=== PATIENT | female | born 1970 | race Caucasian/White ===

== ENCOUNTER 2019-07-19 20:00 | Outpatient (CLI) | payer MEDICARE, MEDICAID, SELFPAY | END 2019-07-19 20:01 | disposition home or self-care (01) | LOC: SLEEP 07-20 10:35 | PROVIDERS: Family Provider Nurse Practitioner Family; PCP Family Medicine; Visit Provider Family Medicine | DX: G47.33 Obstructive sleep apnea (adult) (pediatric) (principal) | CPT/HCPCS: 95810; 95811 ==

== ENCOUNTER → 2019-09-15 13:08 | Outpatient (BNVA) | payer MEDICARE, MEDICAID, SELFPAY | PROVIDERS: Family Provider Nurse Practitioner Family; PCP Nurse Practitioner Family; Visit Provider Family Medicine | DX: E55.9 Vitamin D deficiency, unspecified (principal) | CPT/HCPCS: 80053; 82306 ==

== ENCOUNTER → 2019-12-23 11:19 | Outpatient (BNVA) | payer MEDICARE, MEDICAID, SELFPAY | PROVIDERS: Family Provider Nurse Practitioner Family; PCP Nurse Practitioner Family; Visit Provider Nurse Practitioner Family | DX: R76.11 Nonspecific reaction to tuberculin skin test without active tuberculosis (principal); E55.9 Vitamin D deficiency, unspecified; E78.5 Hyperlipidemia, unspecified; G47.33 Obstructive sleep apnea (adult) (pediatric); F31.9 Bipolar disorder, unspecified; M79.5 Residual foreign body in soft tissue | CPT/HCPCS: 71046; 80053; 80061; 82306; 85025 ==

== ENCOUNTER 2019-12-28 11:43 | Outpatient (CLI) | payer MEDICARE, MEDICAID, SELFPAY ==
--- NOTE | 2019-12-28 11:51 | MM_ITS ---
WS: [id number] SCREENING DIGITAL MAMMOGRAM WITH CAD HISTORY: SCREENING COMPARISON: 09/25/2018, 10/27/2017 Bilateral CC and MLO views submitted. Computer aided detection analyzed. Breast composition: The breasts are heterogeneously dense, which may obscure small masses. No suspici ous masses, microcalcifications or architectural distortion. MM/[place] [id number] IMPRESSION: BI-RADS: 1-Negative FOLLOW UP: 1 Year Follow-up
== END 2019-12-28 11:44 | disposition home or self-care (01) ==
PROVIDERS: PCP Nurse Practitioner Family; Visit Provider Family Medicine
DX: Z12.31 Encounter for screening mammogram for malignant neoplasm of breast (principal)
CPT/HCPCS: 77067

== ENCOUNTER 2020-02-02 07:24 | Day surgery (SDC) | payer MEDICARE, MEDICAID, SELFPAY ==
[2020-01-27 13:08] VITALS: BMI 39.1
[2020-02-02 07:56] LABS: OR HCG Qualitative Urine Negative (Negative)
[2020-02-02 08:02] VITALS: BP 126/81; PULSE 70; RESP 18; TEMP 36.8; O2SAT 96
[2020-02-02] MEDS: sodium chloride 0.9% 1,000 ML 30 ML IV (08:06)
--- NOTE | 2020-02-02 08:06 | ANES.PREANE2 ---
Pre-Anesthetic Assessment Pre-Anesthetic Assessment: Height/Weight: Height 1.6 m Weight 100.244 kg Temp Pulse Resp BP Pulse Ox 98.3 F 70 18 126/81 96 02/02/20 08:02 02/02/20 08:02 02/02/20 08:02 02/02/20 08:02 02/02/20 08:02 Preop Diagnosis: Screening colonoscopy Proposed Procedure: Operation Date: 02/02/20 08:15 Proposed Procedures p Colonoscopy/98186 Z12.11(Not Applicable) - Jaswinder Camara MD Last intake: Intake Last Liquid Date 02/01/20 Last Liquid Time 22:00 Last Solid Date 01/31/20 Social: Social History: No alcohol and No tobacco Exam: Pre-Anes Outpt Exam: alert, oriented x 3, clear to auscultation bilaterally and regular rate & rhythm Airway: Submandibular: WNL Cervical ROM: WNL MP: 2 Dentition: False (upper) and Other (teeth poor ) History/ROS: No significant history except as noted Pulmonary: Pulmonary: OLIVAS and Sleep apnea CV/HEM: CV/HEM: None reported : : None reported Hepatic: Hepatic: None reported GI: GI: GERD (controlled) Metabolic: Metabolic: Hyperlipidemia and Morbid obesity Musc/skel: Musc/skel: None reported Neuropsych: Neuropsych: Anxiety, Bipolar and Depression Anesthetic Plan: ASA status: 3 Anesthesia: Anesthesia Evaluation and MAC Risk of > 500 ml blood loss (7ml/kg in children): No Meds/Allergies Current Medications: Current Medications Generic Name Dose Route Start Last Admin Trade Name Freq PRN Reason Stop Dose Admin Sodium Chloride 1,000 mls @ 30 ml s/hr 02/02/20 07:45 02/02/20 08:06 Sodium Chloride 0.9% IV 30 mls/hr .Q24H GRACE Administration PFSH Anesthesia PFSH: Medical History Bipolar 1 disorder Dyslipidemia Intellectual delay ROB on CPAP Family History Other Cancer Diabetes Hyperlipidemia Hypertension Thyroid disease Denies family history of Anesthesia complication Bleeding disorder Social History Smoking and tobacco status: never smoked Second hand smoke exposure: No Alcohol intake: never Caregiver/support person: Yes Household members: caregiver Marital status: Single Current occupational status: disabled History of recent travel: No Current gender identity: Female Data Anesthesia Other Labs: Laboratory Results - last 48 hr 02/02/20 07:46 Urine HCG, Qual Negative Cardiac Studies: No Data to Display
--- NOTE | 2020-02-02 08:41 | W.PM.OPSUD ---
Surgery/Procedure H&P Update DATE OF PROCEDURE: February 02, 2020 DATE H&P PERFORMED: 01/19/20 H&P UPDATE INFORMATION: I have reviewed H&P completed within last 30 days, I have examined patient prior to procedure and No changes to prior documentation PREOP DIAGNOSIS: Screening colonoscopy PRIMARY INDICATION FOR PROCEDURE: The same PLANNED PROCEDURE: Operation Date: 02/02/20 08:15 Proposed Procedures p Colonoscopy/03101 Z12.11(Not Applicable) - Jaswinder Camara MD
[2020-02-02 08:59] VITALS: BP 125/82; PULSE 85; RESP 16; TEMP 36.1; O2SAT 97
[2020-02-02 09:13] VITALS: BP 126/74; PULSE 77; RESP 18; O2SAT 100
== END 2020-02-02 09:24 | disposition home or self-care (01) ==
PROVIDERS: PCP Nurse Practitioner Family; Visit Provider Surgery
PROC: 0DJD8ZZ Inspection of Lower Intestinal Tract, Via Natural or Artificial Opening Endoscopic (ICD-10-PCS; CPT 45378; principal; 2020-02-02 08:15)
DX: Z12.11 Encounter for screening for malignant neoplasm of colon (principal); D12.3 Benign neoplasm of transverse colon; D12.8 Benign neoplasm of rectum; K21.9 Gastro-esophageal reflux disease without esophagitis; E78.5 Hyperlipidemia, unspecified; E66.01 Morbid (severe) obesity due to excess calories; Z68.39 Body mass index [BMI] 39.0-39.9, adult; G47.33 Obstructive sleep apnea (adult) (pediatric)
CPT/HCPCS: 12345; 45380; 84703; 88305; J2704; J7030

== ENCOUNTER → 2020-04-04 14:44 | Outpatient (BNVA) | payer MEDICARE, MEDICAID, SELFPAY | PROVIDERS: PCP Nurse Practitioner Family; Referring Provider Family Medicine; Visit Provider Podiatrist Foot & Ankle Surgery | DX: M79.671 Pain in right foot (principal); M79.672 Pain in left foot; M25.571 Pain in right ankle and joints of right foot; M25.572 Pain in left ankle and joints of left foot; Z47.89 Encounter for other orthopedic aftercare; M76.829 Posterior tibial tendinitis, unspecified leg; M72.2 Plantar fascial fibromatosis | CPT/HCPCS: 73610; 73630; 97760; L1902 ==

== ENCOUNTER 2020-04-04 15:32 | Outpatient (CLI) | payer MEDICARE, MEDICAID, SELFPAY | END 2020-04-04 15:33 | disposition home or self-care (01) | LOC: SPT 15:33 | PROVIDERS: PCP Nurse Practitioner Family; Visit Provider Podiatrist Foot & Ankle Surgery | DX: Z47.89 Encounter for other orthopedic aftercare (principal); M76.829 Posterior tibial tendinitis, unspecified leg; M72.2 Plantar fascial fibromatosis | CPT/HCPCS: 97760; L1902 ==

== ENCOUNTER → 2020-05-23 10:48 | Outpatient (BNVA) | payer MEDICARE, MEDICAID, SELFPAY | PROVIDERS: PCP Nurse Practitioner Family; Visit Provider Family Medicine | DX: Z20.828 Contact with and (suspected) exposure to other viral communicable diseases (principal); J01.00 Acute maxillary sinusitis, unspecified | CPT/HCPCS: 87635 ==

== ENCOUNTER → 2020-06-12 10:17 | Outpatient (BNVA) | payer MEDICARE, MEDICAID, SELFPAY | PROVIDERS: PCP Nurse Practitioner Family; Visit Provider Family Medicine | DX: E78.5 Hyperlipidemia, unspecified (principal); E55.9 Vitamin D deficiency, unspecified | CPT/HCPCS: 80053; 80061; 82306; 85025 ==

== ENCOUNTER → 2020-12-18 10:04 | Outpatient (BNVA) | payer MEDICARE, MEDICAID, SELFPAY | PROVIDERS: PCP Nurse Practitioner Family; Visit Provider Family Medicine | DX: Z00.00 Encounter for general adult medical examination without abnormal findings (principal); Z11.1 Encounter for screening for respiratory tuberculosis; E78.5 Hyperlipidemia, unspecified; Z12.31 Encounter for screening mammogram for malignant neoplasm of breast | CPT/HCPCS: 71046; 80053; 80061; 81003; 84443; 85025 ==

== ENCOUNTER → 2021-02-08 13:34 | Outpatient (BNVA) | payer MEDICARE, MEDICAID, SELFPAY | PROVIDERS: PCP Nurse Practitioner Family; Visit Provider Family Medicine | DX: E55.9 Vitamin D deficiency, unspecified (principal) | CPT/HCPCS: 82306 ==

== ENCOUNTER 2021-03-22 14:31 | Outpatient (CLI) | payer MEDICARE, MEDICAID, SELFPAY ==
--- NOTE | 2021-03-22 14:47 | MM_ITS ---
WS: [id number] SCREENING DIGITAL MAMMOGRAM WITH CAD HISTORY: SCREENING COMPARISON: 12/28/2019, 09/25/2018 and 10/27/2017 Bilateral CC and MLO views submitted. Computer aided detection analyzed. Breast composition: The breasts are heterogeneously dense, which may obscure small masses. Asymmetry seen on the LEFT CC projection posteriorly measures 13 mm. This is probably above the nipple line on the lateral projection. This asymmetry has become more prominent as compared to prior studies. MM/[place] [id number] IMPRESSION: BI-RADS: 0-Incomplete: Need additional imaging evaluation FOLLOW UP: Need Additional Imaging LEFT breast: Spot compression views (CC and MLO). True ML. Ultrasound to follow if abnormality persists.
== END 2021-03-22 14:32 | disposition home or self-care (01) ==
LOC: RADSHAW 14:42
PROVIDERS: PCP Nurse Practitioner Family; Visit Provider Family Medicine
DX: Z12.31 Encounter for screening mammogram for malignant neoplasm of breast (principal)
CPT/HCPCS: 77067

== ENCOUNTER → 2021-04-02 16:15 | Outpatient (BNVA) | payer MEDICARE, MEDICAID, SELFPAY | PROVIDERS: PCP Nurse Practitioner Family; Visit Provider Nurse Practitioner Family | DX: Z20.822 Contact with and (suspected) exposure to COVID-19 (principal); J01.40 Acute pansinusitis, unspecified | CPT/HCPCS: 87635 ==

== ENCOUNTER 2021-05-15 14:20 | Outpatient (CLI) | payer MEDICARE, MEDICAID, SELFPAY ==
--- NOTE | 2021-05-15 14:28 | US_ITS ---
WS: [id number] ADDITIONAL VIEWS LEFT MAMMOGRAM LEFT BREAST ULTRASOUND HISTORY: LEFT BREAST ASYMMETRY COMPARISON: None available. LEFT MAMMOGRAM: Spot compression views and true ML. The asymmetry seen central to the nipple essentially resolved. There is very dense fibroglandular tis rosa central and to the lateral breast. Ultrasound will be performed to better evaluate this dense fib roglandular tissue. LEFT BREAST ULTRASOUND 2-D and color Doppler imaging submitted. Ultrasound is directed to the superior LEFT breast. There is dense fibroglandular tissue but no mass identified. US/US breast LT limited* [id number] IMPRESSION: BI-RADS: 2-Benign FOLLOW UP: 1 Year Follow-up
== END 2021-05-15 14:21 | disposition home or self-care (01) ==
LOC: RADSHAW 14:25
PROVIDERS: PCP Nurse Practitioner Family; Visit Provider Family Medicine
DX: N64.89 Other specified disorders of breast (principal)
CPT/HCPCS: 76642; 77065

== ENCOUNTER → 2021-07-04 08:50 | Outpatient (BNVA) | payer MEDICARE, MEDICAID, SELFPAY | PROVIDERS: PCP Nurse Practitioner Family; Visit Provider Nurse Practitioner Family | DX: Z00.00 Encounter for general adult medical examination without abnormal findings (principal); E78.5 Hyperlipidemia, unspecified; E55.9 Vitamin D deficiency, unspecified | CPT/HCPCS: 80053; 80061; 82306 ==

== ENCOUNTER → 2021-12-07 09:47 | Outpatient (BNVA) | payer MEDICARE, MEDICAID, SELFPAY | PROVIDERS: PCP Nurse Practitioner Family; Visit Provider Nurse Practitioner Family | DX: E78.5 Hyperlipidemia, unspecified (principal); E55.9 Vitamin D deficiency, unspecified | CPT/HCPCS: 80053; 80061; 84443; 85025 ==

== ENCOUNTER → 2021-12-24 11:24 | Outpatient (BNVA) | payer MEDICARE, MEDICAID, SELFPAY | PROVIDERS: PCP Nurse Practitioner Family; Visit Provider Nurse Practitioner Family | DX: Z00.00 Encounter for general adult medical examination without abnormal findings (principal); Z11.1 Encounter for screening for respiratory tuberculosis | CPT/HCPCS: 71046 ==

== ENCOUNTER → 2022-04-16 14:43 | Outpatient (BNVA) | payer MEDICARE, MEDICAID, SELFPAY | PROVIDERS: PCP Nurse Practitioner Family; Visit Provider Nurse Practitioner Family | DX: E55.9 Vitamin D deficiency, unspecified (principal) | CPT/HCPCS: 82306 ==

== ENCOUNTER 2022-05-08 10:10 | Outpatient (CLI) | payer MEDICARE, MEDICAID, SELFPAY ==
--- NOTE | 2022-05-08 10:18 | MM_ITS ---
WS: [id number] BILATERAL SCREENING DIGITAL MAMMOGRAM WITH CAD HISTORY: SCREENING COMPARISON: None available. Bilateral CC and MLO views submitted. Computer aided detection analyzed. Breast composition: The breasts are heterogeneously dense, which may obscure small masses. No suspici ous masses, microcalcifications or architectural distortion. MM/[place] [id number] IMPRESSION: BI-RADS: 1-Negative FOLLOW UP: 1 Year Follow-up
== END 2022-05-08 10:11 | disposition home or self-care (01) ==
LOC: RAD 10:10
PROVIDERS: PCP Nurse Practitioner Family; Visit Provider Nurse Practitioner Family
DX: Z12.31 Encounter for screening mammogram for malignant neoplasm of breast (principal)
CPT/HCPCS: 77063; 77067

== ENCOUNTER → 2022-10-14 13:48 | Outpatient (BNVA) | payer MEDICARE, MEDICAID, SELFPAY | PROVIDERS: PCP Nurse Practitioner Family; Visit Provider Nurse Practitioner Family | DX: E78.5 Hyperlipidemia, unspecified (principal); E55.9 Vitamin D deficiency, unspecified | CPT/HCPCS: 80053; 80061; 82306; 85025 ==

== ENCOUNTER → 2022-10-28 10:03 | Outpatient (BNVA) | payer MEDICARE, MEDICAID, SELFPAY | PROVIDERS: PCP Nurse Practitioner Family; Visit Provider Podiatrist Foot & Ankle Surgery | DX: M21.611 Bunion of right foot (principal); M20.41 Other hammer toe(s) (acquired), right foot; M20.42 Other hammer toe(s) (acquired), left foot; M21.41 Flat foot [pes planus] (acquired), right foot; M21.42 Flat foot [pes planus] (acquired), left foot | CPT/HCPCS: 73630; 99203 ==

== ENCOUNTER → 2022-12-23 09:37 | Outpatient (BNVA) | payer MEDICARE, MEDICAID, SELFPAY | PROVIDERS: PCP Nurse Practitioner Family; Visit Provider Nurse Practitioner Family | DX: E78.5 Hyperlipidemia, unspecified (principal) | CPT/HCPCS: 80053; 80061; 84443; 85025 ==

== ENCOUNTER → 2023-01-06 16:00 | Outpatient (BNVA) | payer MEDICARE, MEDICAID, SELFPAY | PROVIDERS: PCP Nurse Practitioner Family; Visit Provider Obstetrics & Gynecology | DX: Z12.4 Encounter for screening for malignant neoplasm of cervix (principal) | CPT/HCPCS: 87624 ==

== ENCOUNTER → 2023-01-27 09:33 | Outpatient (BNVA) | payer MEDICARE, MEDICAID, SELFPAY | PROVIDERS: PCP Nurse Practitioner Family; Visit Provider Podiatrist Foot & Ankle Surgery | DX: E78.5 Hyperlipidemia, unspecified (principal); M21.611 Bunion of right foot; M20.41 Other hammer toe(s) (acquired), right foot; M21.41 Flat foot [pes planus] (acquired), right foot; M21.42 Flat foot [pes planus] (acquired), left foot | CPT/HCPCS: 99213 ==

== ENCOUNTER → 2023-01-29 10:58 | Outpatient (BNVA) | payer MEDICARE, MEDICAID, SELFPAY | PROVIDERS: PCP Nurse Practitioner Family; Visit Provider Obstetrics & Gynecology | DX: N85.2 Hypertrophy of uterus (principal); N83.202 Unspecified ovarian cyst, left side; N83.201 Unspecified ovarian cyst, right side | CPT/HCPCS: 76830 ==

== ENCOUNTER → 2023-02-04 12:00 | Outpatient (BNVA) | payer MEDICARE, MEDICAID, SELFPAY | PROVIDERS: PCP Nurse Practitioner Family; Visit Provider Nurse Practitioner Family | DX: Z11.1 Encounter for screening for respiratory tuberculosis (principal) | CPT/HCPCS: 71046 ==

== ENCOUNTER → 2023-02-11 17:00 | Outpatient (BNVA) | payer MEDICARE, MEDICAID, SELFPAY | PROVIDERS: PCP Nurse Practitioner Family; Visit Provider Obstetrics & Gynecology | DX: R87.619 Unspecified abnormal cytological findings in specimens from cervix uteri (principal) | CPT/HCPCS: 87491; 87591; 88305 ==

== ENCOUNTER 2023-05-09 09:56 | Outpatient (CLI) | payer MEDICARE, MEDICAID, SELFPAY ==
--- NOTE | 2023-05-09 10:00 | MM_ITS ---
WS: [id number] BILATERAL 3D TOMOSYNTHESIS DIGITAL SCREENING MAMMOGRAPHY WITH CAD CLINICAL INFORMATION: SCREENING HISTORY: Screening mammogram. No current complaints. COMPARISON: 2021 TECHNIQUE: Bilateral CC and MLO views. FINDINGS: The breasts are composed of heterogeneous fibroglandular density tissue, which can limit the detectio n of small underlying mass lesions. No suspicious mass, asymmetry, calcifications, or architectural d istortion. No evidence of malignancy. IMPRESSION: MM/[place] [id number] BI-RADS: 1-Negative FOLLOW UP: 1 Year Follow-up Recommend return to annual screening mammography.
== END 2023-05-09 09:57 | disposition home or self-care (01) ==
LOC: MOBLMAM 10:09
PROVIDERS: PCP Nurse Practitioner Family; Visit Provider Nurse Practitioner Family
DX: Z12.31 Encounter for screening mammogram for malignant neoplasm of breast (principal)
CPT/HCPCS: 77063; 77067

== ENCOUNTER → 2023-06-16 15:04 | Outpatient (BNVA) | payer MEDICARE, MEDICAID, SELFPAY | PROVIDERS: PCP Nurse Practitioner Family; Visit Provider Nurse Practitioner Family | DX: E78.5 Hyperlipidemia, unspecified (principal) | CPT/HCPCS: 80053; 80061; 84443; 85025 ==

== ENCOUNTER → 2023-11-25 09:41 | Outpatient (BNVA) | payer MEDICARE, MEDICAID, SELFPAY | PROVIDERS: PCP Nurse Practitioner Family; Visit Provider Nurse Practitioner Family | DX: E78.5 Hyperlipidemia, unspecified (principal); G47.9 Sleep disorder, unspecified; F32.A Depression, unspecified; K21.9 Gastro-esophageal reflux disease without esophagitis; F31.9 Bipolar disorder, unspecified; G47.33 Obstructive sleep apnea (adult) (pediatric); Z76.0 Encounter for issue of repeat prescription; Z79.899 Other long term (current) drug therapy | CPT/HCPCS: 80053; 80061; 84443; 85025 ==

== ENCOUNTER → 2024-02-09 09:48 | Outpatient (BNVA) | payer MEDICARE, MEDICAID, SELFPAY | PROVIDERS: PCP Nurse Practitioner Family; Visit Provider Nurse Practitioner Family | DX: Z11.1 Encounter for screening for respiratory tuberculosis (principal) | CPT/HCPCS: 71046 ==

== ENCOUNTER → 2024-03-02 15:35 | Outpatient (BNVA) | payer MEDICARE, MEDICAID, SELFPAY | PROVIDERS: PCP Nurse Practitioner Family; Visit Provider Obstetrics & Gynecology | DX: Z01.419 Encounter for gynecological examination (general) (routine) without abnormal findings (principal) | CPT/HCPCS: 87624 ==

== ENCOUNTER → 2024-05-26 10:53 | Outpatient (BNVA) | payer MEDICARE, MEDICAID, SELFPAY | PROVIDERS: PCP Nurse Practitioner Family; Visit Provider Nurse Practitioner Family | DX: E78.5 Hyperlipidemia, unspecified (principal); G47.9 Sleep disorder, unspecified | CPT/HCPCS: 80053; 80061; 84443; 85025 ==

== ENCOUNTER 2024-06-15 12:38 | Outpatient (CLI) | payer MEDICARE, MEDICAID, SELFPAY ==
--- NOTE | 2024-06-15 12:40 | MM_ITS ---
WS: [id number] BILATERAL 3D TOMOSYNTHESIS DIGITAL SCREENING MAMMOGRAPHY WITH CAD CLINICAL INFORMATION: SCREENING HISTORY: Screening mammogram. No current complaints. COMPARISON: 2022 TECHNIQUE: Bilateral CC and MLO views. FINDINGS: The breasts are composed of heterogeneous fibroglandular density tissue, which can limit the detectio n of small underlying mass lesions. Dense nodularity with slight spiculation upper outer LEFT breast measuring 9 mm with associated architectural distortion progressed since the prior studies. Recommen d further evaluation with LEFT breast diagnostic mammography and ultrasound. Unremarkable RIGHT breast. MM/MM [facility] tomosynthesis [id number] IMPRESSION: DENSITY: The breasts are heterogeneously dense, which may obscure small masses. BI-RADS: 0 - Incomplete: Need additional imaging evaluation FOLLOW UP: Need Additional Imaging Recommend LEFT breast diagnostic mammography and ultrasound.
== END 2024-06-15 12:39 | disposition home or self-care (01) ==
LOC: MOBLMAM 12:41
PROVIDERS: PCP Nurse Practitioner Family; Visit Provider Nurse Practitioner Family
DX: Z12.31 Encounter for screening mammogram for malignant neoplasm of breast (principal); R92.333 Mammographic heterogeneous density, bilateral breasts; N63.21 Unspecified lump in the left breast, upper outer quadrant
CPT/HCPCS: 77063; 77067

== ENCOUNTER 2024-07-05 14:56 | Outpatient (CLI) | payer MEDICARE, MEDICAID, SELFPAY ==
--- NOTE | 2024-07-05 | US_ITS ---
[address] [address] Mammography Report Signed Patient: Mercedes Jhaveri Unit #: [id number] : 1970 Age/Sex: 53 / F ADM Date: 07/05/24 Loc: RAD Room/Bed: Attending Dr: Rosalinda Martínez SHIFT LAB TECHNICIAN-C Ordering Provider/Ordering MD: Rosalinda Martínez Date of Service: 07/05/24 Procedure(s): MM diag LT tomosynthesis [id number]; US breast LT limited* [id number] Accession Number(s): [id number]; [id number] Report Number: [id number] NOTE: Report was unsigned for reason: Report did not cross. Original Signature date and time was: 07/05/24 @ 16:59 LEFT 3D TOMOSYNTHESIS DIGITAL MAMMOGRAPHY WITH CAD CLINICAL INFORMATION: N64.9 - Disorder of breast, unspecified HISTORY: Additional views COMPARISON: 06/15/2024 TECHNIQUE: 3 views of the left breast were obtained. FINDINGS: The left breast is composed of heterogeneous fibroglandular density tissue, which can limit the detection of small underlying mass lesions. Again seen is the dense nodular breast tissue upper outer LEFT breast. This is persistent on the spot compression views. Ultrasound of this area is pending. ULTRASOUND BREAST LEFT TECHNIQUE: Ultrasound left breast focused area of concern. CLINICAL INFORMATION: N64.9 - Disorder of breast, unspecified FINDINGS: Ultrasound upper outer quadrant LEFT breast. Dense underlying parenchymal tissue. No suspicious abnormalities upper outer quadrant LEFT breast. No cystic or solid lesions. No suspicious lesions to target for biopsy. Findings are benign. Recommend return to annual screening mammography. IMPRESSION: DENSITY: The breasts are heterogeneously dense, which may obscure small masses. BI-RADS: 2 - Benign FOLLOW UP: 1 Year Follow-up Recommend return to annual screening mammograph Dictated By: Reid Duarte MD Signed By: Reid Duarte MD Signed Date/Time: 07/06/24710 DD/ 7 JACKLYN
== END 2024-07-05 14:57 | disposition home or self-care (01) ==
PROVIDERS: PCP Nurse Practitioner Family; Visit Provider Nurse Practitioner Family
DX: N64.9 Disorder of breast, unspecified (principal); R92.332 Mammographic heterogeneous density, left breast
CPT/HCPCS: 76642; 77061; G0279

== ENCOUNTER → 2024-09-27 11:19 | Outpatient (BNVA) | payer MEDICARE, MEDICAID, SELFPAY | PROVIDERS: PCP Nurse Practitioner Family; Visit Provider Nurse Practitioner Family | DX: M25.571 Pain in right ankle and joints of right foot (principal) | CPT/HCPCS: 73610 ==

== ENCOUNTER → 2024-11-16 10:27 | Outpatient (BNVA) | payer MEDICARE, MEDICAID, SELFPAY | PROVIDERS: PCP Nurse Practitioner Family; Visit Provider Nurse Practitioner Family | DX: F32.A Depression, unspecified (principal); E78.5 Hyperlipidemia, unspecified; R73.09 Other abnormal glucose | CPT/HCPCS: 80053; 80061; 83036; 84443; 85025 ==

== ENCOUNTER → 2024-12-21 13:30 | Outpatient (BNVA) | payer MEDICARE, MEDICAID, SELFPAY | PROVIDERS: PCP Nurse Practitioner Family; Visit Provider Nurse Practitioner Family | DX: E55.9 Vitamin D deficiency, unspecified (principal) | CPT/HCPCS: 82306 ==

== ENCOUNTER 2025-01-04 09:59 | Day surgery (SDC) | payer MEDICARE, MEDICAID, SELFPAY ==
[2025-01-04] VITALS (9 sets, daily range): BP systolic 120–149; BP diastolic 71–102; PULSE 59–75; RESP 16–18; TEMP 36.2–36.7; O2SAT 97–100; BMI 40.0
--- NOTE | 2025-01-04 01:47 | W.PM.OPSFHP ---
Same Day Surgery H&P Indication for Procedure/HPI DATE OF PROCEDURE: January 04, 2025 CHIEF COMPLAINT/INDICATIONFOR SURGICAL PROCEDURE: postmenopausal bleeding PREOP DIAGNOSIS: postmenopausal bleeding PLANNED PROCEDURE: Operation Date: 01/04/25 12:05 Proposed Procedures p Hysteroscopy w/ Endometrial Sampling 71145 [id number], N95.0(Not Applicable) - Lul Potts MD s POSSIBLE Endometrial Poylpectomy(Not Applicable) - Lul Potts MD Medications/Allergies* Home Medications ?Medication ?Instructions ?Recorded ?Confirmed ?Type citalopram 20 mg tablet 20 mg PO DAILY 09/03/19 01/03/25 History hydroxyzine pamoate 50 mg capsule 50 mg PO TID 01/19/20 01/03/25 History lamotrigine 100 mg tablet 100 mg PO TID 01/19/20 01/03/25 History risperidone 1 mg tablet 1 mg PO BID 04/23/21 01/03/25 History risperidone 4 mg tablet (Risperdal) 4 mg PO .at bed time 04/23/21 01/03/25 History acetaminophen 325 mg tablet 650 mg PO Q4H 01/03/25 01/03/25 History ergocalciferol (vitamin D2) 1,250 1,250 mcg PO .WEEKLY 01/03/25 01/03/25 History mcg (50,000 unit) capsule famotidine 20 mg tablet 20 mg PO BID 01/03/25 01/03/25 History loperamide 2 mg capsule 2 mg PO PRN PRN loose stool 01/03/25 01/03/25 History magnesium hydroxide 400 mg/5 mL 30 ml PO PRN 01/03/25 01/03/25 History oral suspension (Milk of Magnesia) perphenazine 2 mg tablet 2 mg PO BID 01/03/25 01/03/25 History perphenazine 4 mg tablet 4 mg PO BEDTIME 01/03/25 01/03/25 History vitamin with calcium 1 tab PO DAILY 01/03/25 01/03/25 History no.72-iron 27 mg-folic acid 1 mg tablet (M-Kal Plus) simvastatin 10 mg tablet 10 mg PO DAILY 01/03/25 01/03/25 History sunscreen 1 applic topical PRN PRN sun 01/03/25 01/03/25 History exposure Allergies/Adverse Reactions Allergy/AdvReac Type Severity Reaction Status Date / Time divalproex sodium (From Allergy Unknown Unknown Verified 12/21/24 13:23 Depakote) valproic acid (From Depakene) Allergy Unknown Unknown Verified 12/21/24 13:23 carbamazepine Allergy Unknown Verified 12/21/24 13:23 codeine Allergy Unknown Verified 12/21/24 13:23 lithium Allergy Unknown Verified 12/21/24 13:23 Morpholine Analogues Allergy Unknown Verified 12/21/24 13:23 Sulfa (Sulfonamide Allergy Unknown Verified 12/21/24 13:23 Antibiotics) tuberculin, purified protein Allergy Unknown Verified 12/21/24 13:23 deriva (From Tubersol) Pertinent History/Comorbid Conditions* Medical History (Updated 12/04/24 @ 23:57 by Lul Potts MD) Bipolar 1 disorder Intellectual delay ROB on CPAP Dyslipidemia Family History (Updated 01/19/20 @ 13:47 by Pearl Lam RN) Diabetes Hyperlipidemia Cancer Hypertension Thyroid disease Denies family history of Anesthesia complication Bleeding disorder Social History Smoking and tobacco/nicotine status: never used tobacco/nicotine Pertinent Exam Findings alert, oriented x 3, clear to auscultation bilaterally and regular rate & rhythm Recommendations Surgery/Procedure today Coding Level of Care Code Acute Code for Chg Fwd
--- NOTE | 2025-01-04 11:27 | ANES.PREANE2 ---
Pre-Anesthetic Assessment Height/Weight: Height 5 ft 3 in Weight 226 lb Temp Pulse Resp BP Pulse Ox O2 Del Method 98.1 F 59 L 18 149/85 99 Room Air 01/04/25 10:32 01/04/25 10:32 01/04/25 10:32 01/04/25 11:09 01/04/25 10:32 01/04/25 10:34 Preop Diagnosis: postmenopausal bleeding Operation Date: 01/04/25 12:05 Proposed Procedures p Hysteroscopy w/ Endometrial Sampling 54179 10255, N95.0(Not Applicable) - Lul Potts MD s POSSIBLE Endometrial Poylpectomy(Not Applicable) - Lul Potts MD Was Beta Александр taken within 24 hours: N/A Was Clonidine taken within 24 hours: N/A Last intake: Intake Last Liquid Date 01/03/25 Last Liquid Time 20:00 Last Solid Date 01/03/25 Last Solid Time 17:00 Social No alcohol and No tobacco Exam alert, oriented x 3 and regular rate & rhythm Airway Submandibular: within normal limits Mallampati: Class III Comments: Comments: Extremely poor dentition, multiple decaying teeth. Denies any loose Anesthetic Plan ASA status: 3 Anesthesia: General Other: No prior issues with anesthesia NPO since yesterday evening History of GERD on Pepcid Patient has a history of bipolar 1 disorder and has guardians present Labs reviewed from 11/16/2024 and acceptable for procedure today Plan for general anesthesia Medications/Allergies Home Medications ?Medication ?Instructions ?Recorded ?Confirmed ?Last Taken ?Type citalopram 20 mg tablet 20 mg PO DAILY 09/03/19 01/03/25 01/03/25 History hydroxyzine pamoate 50 mg capsule 50 mg PO TID 01/19/20 01/03/25 01/03/25 History lamotrigine 100 mg tablet 100 mg PO TID 01/19/20 01/03/25 01/03/25 History PTT Supinator #1 ea 04/04/20 12/21/24 Unknown Rx risperidone 1 mg tablet 1 mg PO BID 04/23/21 01/03/25 01/03/25 History risperidone 4 mg tablet (Risperdal) 4 mg PO .at bed time 04/23/21 01/03/25 01/03/25 History aluminum-mag hydroxide-simethicone 10 ml PO Q6H PRN indigestion #90 mL 12/14/24 01/03/25 Unknown Rx 400 mg-400 mg-40 mg/5 mL oral susp (Mylanta Maximum Strength) biotin 1 mg capsule 1 mg PO DAILY #30 caps 12/14/24 01/03/25 01/03/25 Rx obndkjhpymlcach-xxskxkppjociz-CP 1 20 ml PO Q4H PRN cough #118 mL 12/14/24 01/03/25 Unknown Rx mg-2.5 mg-5 mg/5 mL oral solution (Dimetapp DM Cold-Cough (PE)) calcium 600 mg (as 1 cap PO DAILY #30 caps 12/14/24 01/03/25 01/03/25 Rx carbonate)-vitamin D3 10 mcg (400 unit) capsule cetirizine 10 mg tablet 10 mg PO DAILY allergy symptoms 12/14/24 01/03/25 01/03/25 Rx #30 tabs docusate sodium 100 mg capsule 100 mg PO BID laxative effect #60 12/14/24 01/03/25 01/03/25 Rx caps fluticasone propionate 50 2 spray intranasal DAILY allergy 12/14/24 01/03/25 01/03/25 Rx mcg/actuation nasal symptoms/nasal congestion #16 grams spray,suspension ibuprofen 400 mg tablet 400 mg PO Q6H PRN pain or fever 12/14/24 01/03/25 Unknown Rx #60 tabs melatonin 10 mg tablet 10 mg PO .at bed time #30 tabs 12/14/24 01/03/25 01/02/25 Rx montelukast 10 mg tablet 10 mg PO DAILY #30 tabs 12/14/24 01/03/25 01/03/25 Rx acetaminophen 325 mg tablet 650 mg PO Q4H 01/03/25 01/03/25 Unknown History ergocalciferol (vitamin D2) 1,250 1,250 mcg PO .WEEKLY 01/03/25 01/03/25 12/14/24 History mcg (50,000 unit) capsule famotidine 20 mg tablet 20 mg PO BID 01/03/25 01/03/25 01/03/25 History loperamide 2 mg capsule 2 mg PO PRN PRN loose stool 01/03/25 01/03/25 Unknown History magnesium hydroxide 400 mg/5 mL 30 ml PO PRN 01/03/25 01/03/25 Unknown History oral suspension (Milk of Magnesia) perphenazine 2 mg tablet 2 mg PO BID 01/03/25 01/03/25 01/03/25 History perphenazine 4 mg tablet 4 mg PO BEDTIME 01/03/25 01/03/25 01/03/25 History vitamin with calcium 1 tab PO DAILY 01/03/25 01/03/25 01/03/25 History no.72-iron 27 mg-folic acid 1 mg tablet (M- Plus) simvastatin 10 mg tablet 10 mg PO DAILY 01/03/25 01/03/25 01/03/25 History sunscreen 1 applic topical PRN PRN sun 01/03/25 01/03/25 Unknown History exposure Allergies Allergy/AdvReac Type Severity Reaction Status Date / Time divalproex sodium (From Allergy Unknown Unknown Verified 12/21/24 13:23 Depakote) valproic acid (From Depakene) Allergy Unknown Unknown Verified 12/21/24 13:23 carbamazepine Allergy Unknown Verified 12/21/24 13:23 codeine Allergy Unknown Verified 12/21/24 13:23 lithium Allergy Unknown Verified 12/21/24 13:23 Morpholine Analogues Allergy Unknown Verified 12/21/24 13:23 Sulfa (Sulfonamide Allergy Unknown Verified 12/21/24 13:23 Antibiotics) tuberculin, purified protein Allergy Unknown Verified 12/21/24 13:23 deriva (From Tubersol) Current Medications Generic Name Dose Route Start Last Admin Trade Name Freq PRN Reason Stop Dose Admin Sodium Chloride 1,000 mls @ 30 mls/hr 01/04/25 10:15 01/04/25 11:09 Sodium Chloride 0.9% IV 01/05/25 10:14 30 mls/hr .Q24H GRACE Administration PFSH Anesthesia Medical History Bipolar 1 disorder Intellectual delay ROB on CPAP Dyslipidemia Family History Other Cancer Diabetes Hyperlipidemia Hypertension Thyroid disease Denies family history of Anesthesia complication Bleeding disorder Social History Smoking and tobacco/nicotine status: never used tobacco/nicotine
--- NOTE | 2025-01-04 11:35 | W.PM.OPSUD ---
Surgery/Procedure H&P Update DATE OF PROCEDURE: January 04, 2025 DATE H&P PERFORMED: 01/04/25 H&P UPDATE INFORMATION: I have reviewed H&P completed within last 30 days, I have examined patient prior to procedure and No changes to prior documentation PREOP DIAGNOSIS: postmenopausal bleeding PLANNED PROCEDURE: Operation Date: 01/04/25 12:05 Proposed Procedures p Hysteroscopy w/ Endometrial Sampling 15514 44219, N95.0(Not Applicable) - Lul Potts MD s POSSIBLE Endometrial Poylpectomy(Not Applicable) - Lul Potts MD
--- NOTE | 2025-01-04 12:02 | PC.NURSE ---
spoke with patients mother who is also her guardian and was advised that the patient is able to sign documents for herself @ [phone]
--- NOTE | 2025-01-04 13:05 | PM.OP ---
Operative Report Date of procedure: January 04, 2025 Pre-op diagnosis: postmenopausal bleeding Post-op diagnosis: same Post-op findings: Technically difficult procedure Cervix high up in vaginal canal Tubular endometrial cavity No polyps / fibroids Minimal amount of endometrial tissue Procedure done: hysteroscopy Curettage of uterus Implants: none Specimens removed/disposition: endometrial curettings Surgeon: Lul Potts MD Anesthesia: MAC Estimated blood loss (mL): 0 Complications: none Findings: Technically difficult procedure Cervix high up in vaginal canal Tubular endometrial cavity No polyps / fibroids Minimal amount of endometrial tissue Condition: stable Disposition: PACU Brief History: 54 y.o. with postmenopausal bleeding Procedure: Informed consent signed. Patient was taken to the operating room. Anesthesia was induced. Patient was placed in dorsolithotomy position, prepped and draped for hysteroscopy. A bivalve speculum was placed in the vagina. The cervix was very high up in the vaginal canal. The anterior lip of the cervix was grasped with a sharp-toothed tenaculum. The cervix was serially dilated with Hegar dilators. . A hysteroscope was placed into the endometrial cavity. The endometrial cavity was seen to be tubular. There were no polyps or fibroids. There was a minimal amount of endometrial tissue. The hysteroscope was then removed. Endometrial curettage was done with a sharp curette. Endometrial tissue was sent to pathology. The sharp-toothed tenaculum was removed. There was no bleeding from the endometrial cavity or cervix. The patient was then placed supine and awakened and taken to the PACU. Postop condition: stable EBL: none Sponge and instruments counts were normal x 2 Complications: none
--- NOTE | 2025-01-04 14:00 | ANE.PACU2 ---
Inpatient post-anesthesia follow up: Airway intact: Yes Vital signs: Temperature 97.1 F Pulse Rate 68 Respiratory Rate 18 Blood Pressure 145/82 Pulse Oximetry 98 Oxygen Delivery Me thod Room Air Oxygen Flow Rate Fraction of Inspir ed Oxygen Hydration adequate: Yes Nausea and vomiting: No Pain level: 1 Mental status: Baseline
== END 2025-01-04 14:00 | disposition home or self-care (01) ==
PROVIDERS: PCP Nurse Practitioner Family; Visit Provider Obstetrics & Gynecology
PROC: 0UJD8ZZ Inspection of Uterus and Cervix, Via Natural or Artificial Opening Endoscopic (ICD-10-PCS; CPT 58555; principal; 2025-01-04 11:55)
DX: N95.0 Postmenopausal bleeding (principal); K21.9 Gastro-esophageal reflux disease without esophagitis; F31.9 Bipolar disorder, unspecified; G47.33 Obstructive sleep apnea (adult) (pediatric); E78.5 Hyperlipidemia, unspecified
CPT/HCPCS: 58558; 88305; J1100; J1885; J2371; J2405; J2704; J3010; J7030; J9999

== ENCOUNTER → 2025-02-22 13:48 | Outpatient (BNVA) | payer MEDICARE, MEDICAID, SELFPAY | PROVIDERS: PCP Nurse Practitioner Family; Visit Provider Nurse Practitioner Family | DX: Z11.1 Encounter for screening for respiratory tuberculosis (principal); I70.0 Atherosclerosis of aorta | CPT/HCPCS: 71046 ==

== ENCOUNTER → 2025-03-08 10:26 | Outpatient (BNVA) | payer MEDICARE, MEDICAID, SELFPAY | PROVIDERS: PCP Nurse Practitioner Family; Visit Provider Surgery | DX: Z12.11 Encounter for screening for malignant neoplasm of colon (principal) | CPT/HCPCS: 99024; 99204 ==

== ENCOUNTER 2025-03-11 10:02 | Outpatient (CLI) | payer MEDICARE, MEDICAID, SELFPAY ==
--- NOTE | 2025-03-11 10:14 | US_ITS ---
WS: [id number] US transvaginal [id number] HISTORY: PELVIC PAIN, history of postmenopausal bleeding. COMPARISON: 01/29/2023 Uterus: 6.8 cm x 3.5 cm x 3.0 cm. Normal size anteverted uterus. No fibroid or mass. Endometrium: 0.2 cm. Thin atrophic endometrium. No mass or increased vascularity. Right ovary: 1.5 cm x 1.1 cm x 1.0 cm. Normal size and vascularity, no cystic or solid masses. Left ovary: 1.5 cm x 1.4 cm x 1.1 cm. Normal size and vascularity, no cystic or solid masses. No free fluid in the cul-de-sac. US/US transvaginal [id number] IMPRESSION: 1. Thin atrophic endometrium. No endometrial mass or increased vascularity. 2. No fibroid. 3. No free fluid.
[2025-03-11 11:33] LABS: CA 125 9.3 U/mL (0-35)
[2025-03-11 12:04] LABS: Carcinoembryonic Antigen 1.5 ng/mL (0.0-4.7)
== END 2025-03-11 10:03 | disposition home or self-care (01) ==
LOC: RAD 10:07
PROVIDERS: PCP Nurse Practitioner Family; Visit Provider Nurse Practitioner Family
DX: R10.2 Pelvic and perineal pain (principal)
CPT/HCPCS: 36415; 76830; 82378; 86304

== ENCOUNTER 2025-03-30 06:25 | Day surgery (SDC) | payer MEDICARE, MEDICAID, SELFPAY ==
[2025-03-30 06:51] VITALS: BP 146/95; PULSE 76; RESP 18; TEMP 36.1; O2SAT 96; BMI 39.8
--- NOTE | 2025-03-30 06:57 | ANES.PREANE2 ---
Pre-Anesthetic Assessment Height/Weight: Height 1.6 m Weight 102.058 kg Temp Pulse Resp BP Pulse Ox O2 Del Method 96.9 F L 76 18 146/95 96 Room Air 03/30/25 06:51 03/30/25 06:51 03/30/25 06:51 03/30/25 06:51 03/30/25 06:51 03/30/25 06:51 Preop Diagnosis: screening Operation Date: 03/30/25 07:40 Proposed Procedures p Colonoscopy [id number] G0121 Z12.11(Not Applicable) - Shaun Thurman MD Was Beta Александр taken within 24 hours: N/A Was Clonidine taken within 24 hours: N/A Last intake: Intake Last Liquid Date 03/29/25 Last Liquid Time 20:00 Last Solid Date 03/29/25 Last Solid Time 20:00 Social No alcohol and No tobacco Exam alert and oriented x 3 Airway Submandibular: within normal limits Cervical ROM: within normal limits Mallampati: Class III Dentition: full History/ROS No significant history except as noted Pulmonary Sleep Apnea CV/HEM None reported None reported Hepatic None reported GI Gastroesophageal Reflux Disease Metabolic obesity [facility] None reported Neuropsych Bipolar Anesthetic Plan ASA status: 3 Anesthesia: MAC Risk of > 500 ml blood loss (7ml/kg in children): No Medications/Allergies Home Medications ?Medication ?Instructions ?Recorded ?Confirmed ?Last Taken ?Type citalopram 20 mg tablet 20 mg PO DAILY 09/03/19 03/28/25 03/28/25 08:00 History hydroxyzine pamoate 50 mg capsule 50 mg PO TID 01/19/20 03/28/25 03/28/25 08:00 History lamotrigine 100 mg tablet 100 mg PO TID 01/19/20 03/28/25 01/03/25 History PTT Supinator #1 ea 04/04/20 03/08/25 Unknown Rx risperidone 1 mg tablet 1 mg PO BID 04/23/21 03/28/25 03/28/25 08:00 History risperidone 4 mg tablet (Risperdal) 4 mg PO .at bed time 04/23/21 03/28/25 03/27/25 History aluminum-mag hydroxide-simethicone 10 ml PO Q6H PRN indigestion #90 mL 12/14/24 03/28/25 03/18/25 Rx 400 mg-400 mg-40 mg/5 mL oral susp (Mylanta Maximum Strength) biotin 1 mg capsule 1 mg PO DAILY #30 caps 12/14/24 03/28/25 03/28/25 Rx aegtulfcyakrowm-rjdbgpevgrkew-YJ 1 20 ml PO Q4H PRN cough #118 mL 12/14/24 03/28/25 Unknown Rx mg-2.5 mg-5 mg/5 mL oral solution (Dimetapp DM Cold-Cough (PE)) calcium 600 mg (as 1 cap PO DAILY #30 caps 12/14/24 03/28/25 03/28/25 Rx carbonate)-vitamin D3 10 mcg (400 0800 unit) capsule cetirizine 10 mg tablet 10 mg PO DAILY allergy symptoms 12/14/24 03/28/25 03/28/25 08:00 Rx #30 tabs docusate sodium 100 mg capsule 100 mg PO BID laxative effect #60 12/14/24 03/28/25 03/28/25 08:00 Rx caps fluticasone propionate 50 2 spray intranasal DAILY allergy 12/14/24 03/28/25 03/28/25 08:00 Rx mcg/actuation nasal symptoms/nasal congestion #16 grams spray,suspension ibuprofen 400 mg tablet 400 mg PO Q6H PRN pain or fever 12/14/24 03/28/25 03/23/25 Rx #60 tabs melatonin 10 mg tablet 10 mg PO .at bed time #30 tabs 12/14/24 03/28/25 03/27/25 Rx montelukast 10 mg tablet 10 mg PO DAILY #30 tabs 12/14/24 03/28/25 03/28/25 08:00 Rx acetaminophen 325 mg tablet 650 mg PO Q4H 01/03/25 03/28/25 Unknown History famotidine 20 mg tablet 20 mg PO BID 01/03/25 03/28/25 03/28/25 08:00 History loperamide 2 mg capsule 2 mg PO PRN PRN loose stool 01/03/25 03/28/25 Unknown History magnesium hydroxide 400 mg/5 mL 30 ml PO PRN 01/03/25 03/28/25 Unknown History oral suspension (Milk of Magnesia) perphenazine 2 mg tablet 2 mg PO BID 01/03/25 03/28/25 03/28/25 08:00 History perphenazine 4 mg tablet 4 mg PO BEDTIME 01/03/25 03/28/25 03/27/25 History simvastatin 10 mg tablet 10 mg PO DAILY 01/03/25 03/28/25 03/28/25 08:00 History sunscreen 1 applic topical PRN PRN sun 01/03/25 03/08/25 Unknown History exposure bisacodyl 5 mg tablet,delayed 20 mg (4 x 5 mg) PO ONCE 1 day #4 03/08/25 03/28/25 Unknown Rx release (Dulcolax (bisacodyl)) tabs magnesium citrate (Citrate of 296 ml PO BID constipation 1 day 03/08/25 03/28/25 Unknown Rx Magnesia oral) #592 mL hydroxyzine pamoate 25 mg capsule 25 mg PO DAILY PRN Anxiety 03/28/25 03/28/25 03/20/25 History vitamins with calcium 1 tab PO DAILY 03/28/25 03/28/25 03/28/25 08:00 History no.72-iron 27 mg-folic acid 1 mg tablet (WesTab Plus) Allergies Allergy/AdvReac Type Severity Reaction Status Date / Time divalproex sodium (From Allergy Unknown Unknown Verified 03/08/25 10:30 Depakote) valproic acid (From Depakene) Allergy Unknown Unknown Verified 03/08/25 10:30 carbamazepine Allergy Unknown Verified 03/08/25 10:30 codeine Allergy Unknown Verified 03/08/25 10:30 lithium Allergy Unknown Verified 03/08/25 10:30 Morpholine Analogues Allergy Unknown Verified 03/08/25 10:30 Sulfa (Sulfonamide Allergy Unknown Verified 03/08/25 10:30 Antibiotics) tuberculin, purified protein Allergy Unknown Verified 03/08/25 10:30 deriva (From Tubersol) [facility] Anesthesia Medical History Bipolar 1 disorder Intellectual delay ROB on CPAP Dyslipidemia Family History Other Cancer Diabetes Hyperlipidemia Hypertension Thyroid disease Denies family history of Anesthesia complication Bleeding disorder Social History Smoking and tobacco/nicotine status: never used tobacco/nicotine
--- NOTE | 2025-03-30 06:59 | P.HPUD_ITS ---
Surgery/Procedure H&P Update DATE OF PROCEDURE: March 30, 2025 DATE H&P PERFORMED: 03/08/25 H&P UPDATE INFORMATION: I have reviewed H&P completed within last 30 days, I have examined patient prior to procedure, No changes to prior documentation, H&P is in [facility] EMR on date indicated and Risks and benefits of the procedure reviewed PREOP DIAGNOSIS: screening PLANNED PROCEDURE: Operation Date: 03/30/25 07:40 Proposed Procedures p Colonoscopy [id number] G0121 Z12.11(Not Applicable) - Shaun Thurman MD
[2025-03-30 07:04] LABS: OR HCG Qualitative Urine Negative (Negative)
[2025-03-30 07:52] VITALS: BP 139/77; PULSE 69; RESP 20; TEMP 36.3; O2SAT 96
[2025-03-30 08:15] VITALS: BP 137/91; PULSE 68; RESP 18; O2SAT 96
--- NOTE | 2025-03-30 08:15 | ANE.PACU2 ---
Inpatient post-anesthesia follow up: Airway intact: Yes Vital signs: Temperature 97.3 F Pulse Rate 68 Respiratory Rate 18 Blood Pressure 137/91 Pulse Oximetry 96 Oxygen Delivery Me thod Room Air Oxygen Flow Rate Fraction of Inspir ed Oxygen Hydration adequate: Yes Nausea and vomiting: No Pain level: 1 Mental status: Baseline
== END 2025-03-30 08:19 | disposition home or self-care (01) ==
PROVIDERS: Anesthesiology; PCP Nurse Practitioner Family; Visit Provider Surgery
PROC: 0DJD8ZZ Inspection of Lower Intestinal Tract, Via Natural or Artificial Opening Endoscopic (ICD-10-PCS; CPT 45378; principal; 2025-03-30 07:40)
DX: Z12.11 Encounter for screening for malignant neoplasm of colon (principal); D12.5 Benign neoplasm of sigmoid colon; D12.8 Benign neoplasm of rectum; G47.33 Obstructive sleep apnea (adult) (pediatric); Z99.89 Dependence on other enabling machines and devices; E78.5 Hyperlipidemia, unspecified; F31.9 Bipolar disorder, unspecified; K21.9 Gastro-esophageal reflux disease without esophagitis; E66.9 Obesity, unspecified; Z68.39 Body mass index [BMI] 39.0-39.9, adult
CPT/HCPCS: 45380; 45385; 81025; 88305; J2704; J7030; J9999

== ENCOUNTER → 2025-04-26 12:44 | Outpatient (BNVA) | payer MEDICARE, MEDICAID, SELFPAY | PROVIDERS: PCP Nurse Practitioner Family; Visit Provider Surgery | DX: Z09 Encounter for follow-up examination after completed treatment for conditions other than malignant neoplasm (principal); R03.0 Elevated blood-pressure reading, without diagnosis of hypertension | CPT/HCPCS: 99213 ==

== ENCOUNTER 2025-05-18 10:48 | Outpatient (CLI) | payer MEDICARE, MEDICAID, SELFPAY ==
--- NOTE | 2025-05-18 10:52 | MM_ITS ---
WS: [id number] BILATERAL 3D TOMOSYNTHESIS DIGITAL SCREENING MAMMOGRAPHY WITH CAD CLINICAL INFORMATION: SCREENING HISTORY: Screening mammogram. No current complaints. COMPARISON: 2023 TECHNIQUE: Bilateral CC and MLO views. FINDINGS: The breasts are composed of heterogeneous fibroglandular density tissue, which can limit the detection of small underlying mass lesions. No suspicious mass, asymmetry, calcifications, or architectural distortion. No evidence of malignancy. MM/MM scr tomosynthesis [id number] IMPRESSION: DENSITY: The breasts are heterogeneously dense, which may obscure small masses. BI-RADS: 1 - Negative FOLLOW UP: 1 Year Follow-up Recommend return to annual screening mammography.
== END 2025-05-18 10:49 | disposition home or self-care (01) ==
LOC: RAD 10:48
PROVIDERS: PCP Nurse Practitioner Family; Visit Provider Nurse Practitioner Family
DX: Z12.31 Encounter for screening mammogram for malignant neoplasm of breast (principal); R92.323 Mammographic fibroglandular density, bilateral breasts; R92.333 Mammographic heterogeneous density, bilateral breasts
CPT/HCPCS: 77063; 77067

== ENCOUNTER → 2025-05-25 10:14 | Outpatient (BNVA) | payer MEDICARE, MEDICAID, SELFPAY | PROVIDERS: PCP Nurse Practitioner Family; Visit Provider Nurse Practitioner Family | DX: F32.A Depression, unspecified (principal); E78.5 Hyperlipidemia, unspecified | CPT/HCPCS: 80053; 80061; 83036; 84443; 85025 ==